=== PATIENT | male | born 1970 | race Caucasian/White ===

== ENCOUNTER 2021-04-12 09:34 | Outpatient (CLI) | payer BC, SELFPAY ==
--- NOTE | ~2021-04-12 | XR_ITS ---
XR elbow RT 2V DATE: 04/12/2021 10:31 INDICATION: Right elbow pain TECHNIQUE: AP and lateral views COMPARISON: None FINDINGS: No fracture or dislocation or joint effusion. No periosteal reaction or bone destruction. IMPRESSION: No significant abnormality Reviewed, dictated and finalized at location A. RITY RESEARCHER IMPRESSION: No significant abnormality
== END 2021-04-12 09:35 ==
PROVIDERS: PCP Physician Assistant; Visit Provider Physician Assistant
DX: M77.01 Medial epicondylitis, right elbow (principal); M25.521 Pain in right elbow
CPT/HCPCS: 73070

== ENCOUNTER → 2021-10-25 09:46 | Outpatient (CLI) | payer BC, SELFPAY ==
--- NOTE | ~2021-10-25 | MR_ITS ---
EXAMINATION: MR elbow RT wo con DATE: 10/25/2021 10:33 INDICATION: Right elbow pain TECHNIQUE: Magnetic resonance imaging (MRI) of the right elbow was performed without intravenous cont rast. Sequences included coronal, axial, and sagittal PD-weighted FS FSE and coronal, axial, and sagi ttal PD-weighted FSE. COMPARISON: None FINDINGS: Osseous/other: Normal alignment. Normal marrow signal with no marrow edema, fracture, osteochondral lesion or abnor mal marrow replacing process. Tendons: Triceps, biceps brachii and brachialis tendons are normal. There is mild tendinopathy without tear a t the common flexor and extensor tendon wads. Mild osteoarthritis at the elbow with mild nonuniform j oint space narrowing with regions of partial-thickness cartilage loss with smooth chondral surfaces w ithout degenerative subchondral changes. Ligaments: The medial and lateral collateral ligament complexes are normal. Cubital tunnel: Cubital tunnel is unremarkable with normal signal and caliber of the ulnar nerve. Fluid: Physiologic amount of fluid the elbow joint. IMPRESSION: 1. Mild tendinopathy without discrete tears at the medial and lateral epicondylar origins of the comm on flexor and extensor tendon wads respectively. 2. Mild osteoarthritis at the right elbow. Reviewed, dictated and finalized at location A. IMPRESSION: 1. Mild tendinopathy without discrete tears at the medial and lateral epicondyl ar origins of the common flexor and extensor tendon wads respectively. 2. Mild osteoarthritis at the right elbow.
== END ==
PROVIDERS: PCP Internal Medicine; Visit Provider Physician Assistant
DX: M17.11 Unilateral primary osteoarthritis, right knee (principal); M77.01 Medial epicondylitis, right elbow
CPT/HCPCS: 73221

== ENCOUNTER 2024-11-23 12:37 | Outpatient (CLI) | payer BC, SELFPAY ==
--- OUTSIDE RECORDS SUMMARY | 2024-02-10 04:27 | XMS_ITS | Continuity of Care Document ---
Author Organization [facility] Address [address] [place] [phone] Phone Care Team Providers Care [employer] Jointer Name Role Phone Osei Limon MD, [facility], Tod Unavailable Unav ailable Allergies, Adverse Reactions, Alerts Substance Reaction Status Criticality No Known Allergies Active No Inform ation Medications Medication Instructions Dosage Effective Dates (start - stop) Status Comments No Drug Therapy Prescribed Advance Directives Directive Yes / No Effective Date File Name No Information Encounters Encounter Description Practice Location Reason(s) For Visit Diagnoses Date Provider Providers Copied on Encounter [facility] , [address] [place] [address], [id number], tel:[phone] [facility] Shortness of breath Osei Baron. [address] [place] [address], [id number], . tel:[phone] Referring Provider: Chucho Yip, [address] [place], [address]. tel:[phone] Family History Family Member Type Diagnosis Age At Onset No Information Payers Payer name Insurance type Covered libertarian ID Authoriza tion(s) No Information Social History Type Description Quantity Date Captured Comments Alcohol Use Details Unknown Caffeine Use Details Unknown Tobacco Use Status No Information Smoking Status No Information Sex Male Chief Complaint And Reason For Visit No Information Reason For Referral Reason For Referral No Information Plan Of Treatment Date Type Action Status Appointment Sheldon Mejia BOOKED Appointment Sheldon Mejia BOOKED History Of Present Illness Encounter Date Complaint History Of Prese nt Illness No Information Functional Status Date Functional Assessmen t No Information Medications Administered Medication Instructions Dosage Effective Dates (start - stop) Status Comments No Drug Therapy Prescribed Instructions Date Instruction Additional Infor mation No Information Assessments Type Assessment Date assessment Shortness of breath Patient Care Teams Name Effective Dates (start - stop) Status Members No Information
--- OUTSIDE RECORDS SUMMARY | 2024-11-23 14:20 | XMS_ITS | Clinical Summary ---
Author Organization [facility] Address [address] [place] [address] Care Team Providers Care Insurance Executive Name Role Phone Unavailable Primary Care Provider Unavailabl e Source Comments [facility],non-owned Affiliates and Associated Physician Practices is amultiple site organization consisting of ambulatory clinics and hospital sitesin [place], [place], [place] and [place]. This disclosure is being madepursuant to the Care Everywhere program and may not contain all information available regarding this patient. Last updated 17.[facility] Lenda Allergies No known active allergies Medications * Be aware that medications may not be up to date on this document. Alwaysverify current medications with the patient. 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 Gender Identity Not on file Sexual Orientation Not on file Last Filed Vital Signs Vital Sign Reading Time Taken Comments Blood Pressure 124/76 02/27/2017 10:52 AM WELCOME HOSTESS Pulse 109 02/27/2017 10:52 AM WELCOME HOSTESS Temperature 37.3 C (99.1 F) 02/27/2017 10:52 AM WELCOME HOSTESS Respiratory Rate 18 02/27/2017 10:52 AM WELCOME HOSTESS Oxygen Saturation 95% 02/27/2017 10:52 AM WELCOME HOSTESS Inhaled Oxygen Concentration - - Weight 122.5 kg (270 lb) 02/27/2017 10:52 AM WELCOME HOSTESS Height 171.5 cm (5' 7.5) 02/27/2017 10:52 AM CS T Body Mass Index 41.66 02/27/2017 10:52 AM WELCOME HOSTESS Plan of Treatment Health Maintenance Due Date Last Done Comments COLOGUARD (AGES 45-75) - COL ON CA SCREENING 1970 COLON MONITORING 1970 COLONOSCOPY - COLON CA SCREENING 1970 CT COLONOGRAPHY - COLON CA SCREENING 1970 Colorectal Cancer Screening 1970 FIT - COLON CA SCREENING 1970 FLEX SIG - COLON CA SCREENING 1970 LIPID TESTING 1970 HIV SCREENING 1985 HEPATITIS C SCREENING 03/05/1988 DTAP/TDAP/TD VACCINES (1 - Tdap) 1989 HEPATITIS B VACCINE (1 of 3 - 19+ 3-dose series) 1989 SCREENING FOR DIABETES 02/27/2017 PNEUMOCOCCAL VACCINE 50+ (1 of 1 - PCV) 2020 ZOSTER VACCINE (1 of 2) 2020 DEPRESSION SCREENING 02/10/2024 COVID-19 VACCINE (1 - 2023-2 5 season) 2024 INFLUENZA VACCINE (#1) 2024 HIB VACCINE Aged Out No longer eligi ble based on patient's age to complete this topic HPV VACCINE Aged Out No longer eligi ble based on patient's age to complete this topic MENINGOCOCCAL (Group B) VACC INE SHARED DECISION-MAKING Aged Out No longer eligibl e based on patient's age to complete this topic MENINGOCOCCAL GROUPS A/C/Y/W VACCINE Aged Out No longer eligible b ased on patient's age to complete this topic Insurance ANTH
--- OUTSIDE RECORDS SUMMARY | 2024-11-23 14:20 | XMS_ITS | Data Portability ---
Author Organization [place] [facility], Main Office Address [address] [place] [address] Assessment Encounter Date Assessment Date Assessment LastModified by Organization Details LastModified Time 05/12/2022 05/12/2022 Blood work continue current therapy colonoscopy he did not get yet see me in 6 months [email or web address] Not available 05/12/2022 22:59:11 11/17/2022 11/17/2022 Will continue current therapy refill medications did not get his colonoscopy scan done will reorder it and encouraged him to do so for colon cancer screening follow-up 6 months [email or web address] Not available 11/17/2022 21:43:05 Plan of Treatment Reminders Order Date Submit Date Provider Last Modified By Organization Details Last Modified Time Details Appointments None recorded. Lab PSA, serum or plasma 2022 023 [facility] (Lab), [address] [place], [address], 4 15:30:15 CMP, serum or plasma 2022 023 [facility] (Lab), [address] [place], [address], 4 15:30:15 lipid panel, serum 2022 023 [facility] (Lab), [address] [place], [address], 4 15:30:15 lipid panel, serum 2022 023 [facility], [address] [place], [address], 4 15:30:14 CMP, serum or plasma 2022 023 [facility], [address] [facility], [place], [address], 4 15:30:14 Referral None recorded. Procedures colonoscopy screening (PROC) 2022 023 sunny Matthews MD, [address] [facility], [facility] [address], [place], [address], 4 14:44:31 colonoscopy screening (PROC) 2022 023 sunny Matthews MD, [address] [facility], [facility] [address], [place], [address], 4 14:44:30 Surgeries None recorded. Imaging None recorded. Medication Orders atorvastati n 10 mg tablet 2022 023 [email or web address] [facility], [address], [facility] [address], [place], [place], [id number], 3 15:30:38 losartan 50 mg tablet 2022 023 [email or web address] [facility], [address], [facility] [address], [place], [place], [id number], 3 15:30:38 Patient TargetsNo targets recorded. Patient InstructionsNo instructions recorded. Reason for Referral None Reported. Results Created Date Observation Date Name Description Value Unit Range Abnormal Flag Note LastModifiedBy Organization Detail LastModifiedTime 10/26/19 22 10/25/2021 MRI, elbow , w/o contr ast No observ ation record ed. [id number] [facility] [address] Ekaterina Nguyen [facility] [address], [place], [address], 04/10/2022 01:25:56 10/26/19 22 10/25/2021 MRI, elbow , w/o contr ast No observ ation record ed. [id number] [facility] [address]arr[address], [place], [address], 04/10/2022 01:25:56 Result Notes None recorded. Problems Name Problem SNOMED Code Status Onset Date Resolution Date Notes Provider Name and Address Organization Details Recorded Time Fatigue 75764128 Active 2021 Not Available [facility] 3 01:24:18 Weight gain 1248323 Active 2021 Not Available [facility] 3 01:24:18 Hyperlipidemia 05644665 Active 2021 Not Available [facility] 3 01:24:18 Essential hypertension 03431454 Active 2021 Not Available [facility] 3 01:24:18 Problem Notes None recorded. Procedures Surgical History Date Name Laterality Status Provider Name and Address Organization Details Recorded Time thumb surgery completed Not Available [facility] 04/10/2022 01:23:17 operation on hip joint completed Not Available [facility] 04/10/2022 01:23:17 Imaging Results None recorded. Procedure Notes None recorded. Medical Equipment None Reported. Allergies No known drug allergies Medications Name Sig Start Date Stop Date Status Note LastModified by Organization Details LastModified Time losartan 50 mg tablet Take 1 tablet by mouth once daily active Not Available Not Available No t Available atorvastat in 10 mg tablet Take 1 tablet by mouth once daily active Not Available Not Available No t Available penicillin V potassium 500 mg tablet TAKE 1 TABLET BY MOUTH TWICE A DAY FOR 10 DAYS 01/13 completed Not Available Not Available Not Available losartan 25 mg tablet TAKE 1 TABLET BY MOUTH ONCE DAILY 01/13 completed changed to 50mg by Dr Yip Not Available Not Available Not Available loratadine 2021 active Not Available Not Available Not Avai lable finasterid e 2021 active Not Available Not Available Not Avai lable Vitals Date Recorded Body height Body weight Body temperature Heart rate Oxygen saturation Oxygen saturation in Arterial blood by Pulse oximetry Systolic And Diastolic Provider Name and Address Organization Details Last Updated DateTime 3 172.72 cm 04646.9 5 g 97.8 [degF] 78 /min 96 % 96 % 130/86 mm[Hg] Mariaelena Patel RN [facility] [employer] [facility] 3 15:10:18 Date Recorded Body mass index (BMI) Body height Heart rate Body temperature Body weight Systolic And Diastolic Provider Name and Address Organization Details Last Updated DateTime 2 32.2 kg/m2 172.72 cm 71 /min 98.5 [degF] 84589.5 8 g 130/78 mm[Hg] Not Available [facility] 3 01:23:22 Date Recorded Body height Body mass index (BMI) Body weight Body temperature Heart rate Systolic And Diastolic Provider Name and Address Organization Details Last Updated DateTime 3 172.72 cm 31.3 kg/m2 94259.0 3 g 97.8 [degF] 69 /min 132/80 mm[Hg] Shanda hurtado RN [facility] [employer] [facility] 3 14:43:14 Date Recorded Body mass index (BMI) Body height Heart rate Body temperature Body weight Systolic And Diastolic Provider Name and Address Organization Details Last Updated DateTime 2 31.6 kg/m2 172.72 cm 87 /min 98 [degF] 10775.2 1 g 144/90 mm[Hg] Not Available [facility] 3 01:23:22 Date Recorded Body mass index (BMI) Body height Heart rate Body temperature Body weight Systolic And Diastolic Provider Name and Address Organization Details Last Updated DateTime 2 32.8 kg/m2 172.72 cm 88 /min 98.5 [degF] 49227.9 5 g 154/84 mm[Hg] Not Available [facility] 3 01:23:23 Social History Question Answer Notes LastModified by Organizat ion Details LastModified Time Tobacco Smoking Status Former Smoker Not Available [facility] 04/10/2022 01:23:02 Do You Have An Advance Directive? No [id number] [id number] Information not available 04/10/2022 Do You Wear A Helmet When Biking? No MIGRATION.19016 57476 Information not available 04/10/2022 What Is Your Level Of Caffeine Consumption? Heavy MIGRATION.68979 97215 Information not available 04/10/2022 In The 14 Days Before Symptom Onset, Have You Had Close Contact With A Laboratory-confi rmed COVID-19 While That Case Was Ill? No MIGRATION.02981 75981 Information not available 04/10/2022 In The 14 Days Before Symptom Onset, Have You Had Close Contact With A Person Who Is Under Investigation For COVID-19 While That Person Was Ill? No MIGRATION.11519 23417 Information not available 04/10/2022 What Type Of Diet Are You Following? CARBOHYDRATE Low Carb Diet MIGRATION.88946 34160 Information not available 04/10/2022 What Is The Highest Grade Or Level Of School You Have Completed Or The Highest Degree You Have Received? CD16045-2 MIGRATION.65921 47534 Information not available 04/10/2022 How Many Days Of Moderate To Strenuous Exercise, Like A Brisk Walk, Did You Do In The Last 7 Days? 2 MIGRATION.66375 20672 Information not available 04/10/2022 Have There Been Any Changes To Your Family Or Social Situation? Yes MIGRATION.90786 16217 Information not available 04/10/2022 What Is The Fluoride Status Of Your Home? Fluoridated MIGRATION.22626 90950 Information not available 04/10/2022 When Did You Quit Smoking? 1-5yearssincelastc igarette MIGRATION.85050 13159 Information not available 04/10/2022 Are There Any Guns Present In Your Home? Yes MIGRATION.91505 78144 Information not available 04/10/2022 Do You Use Insect Repellent Routinely? No MIGRATION.19891 57667 Information not available 04/10/2022 Where Do You Live? [facility] MIGRATION.51757 46302 Information not available 04/10/2022 Do You Have A Medical Power Of In Home Nanny? No MIGRATION.52799 60941 Information not available 04/10/2022 What Was The Date Of Your Most Recent Tobacco Screening? 11/17/2022 Information not available 11/17/2022 Have You Ever Been Counseled For Unhealthy Alcohol Use? No MIGRATION.29001 57034 Information not available 04/10/2022 Do You Have Any Pets? Yes MIGRATION.49420 41960 Information not available 04/10/2022 What Is Your Relationship Status? MIGRATION.99461 53378 Information not available 04/10/2022 Do You Use Your Seat Belt Or Car Seat Routinely? Yes MIGRATION.57861 32776 Information not available 04/10/2022 Do You Have Smoke And Carbon Monoxide Detectors In Your Home? Yes MIGRATION.84253 82557 Information not available 04/10/2022 At What Age Did You Start Smoking Tobacco? 22 MIGRATION.32366 76879 Information not available 04/10/2022 Are You Passively Exposed To Smoke? No MIGRATION.84004 11373 Information not available 04/10/2022 Are There Any Smokers In Your House? No MIGRATION.11070 10989 Information not available 04/10/2022 How Much Tobacco Do You Smoke? No MIGRATION.02861 20561 Information not available 04/10/2022 What Types Of Sporting Activities Do You Participate In? Jogging, Walking, Biking, Swimming MIGRATION.03790 54360 Information not available 04/10/2022 Do You Use Sunscreen Routinely? Yes MIGRATION.22753 07745 Information not available 04/10/2022 Has Tobacco Cessation Counseling Been Provided? No MIGRATION.49778 39421 Information not available 04/10/2022 Have You Recently Traveled Abroad? No MIGRATION.29537 60069 Information not available 04/10/2022 Do You Have Any Dietary Restrictions? No MIGRATION.74509 20563 Information not available 04/10/2022 Sex: Unknown Functional Status Question Answer Note LastModified by Organizat ion Details LastModified Time Do you use any illicit or recreational drugs? No MIGRATION.236049 5119 Information not available 04/10/2022 Do you or have you ever used any other forms of tobacco or nicotine? No MIGRATION.282762 1762 Information not available 04/10/2022 What is your level of alcohol consumption? Occasional MIGRATION.307942 8259 Information not available 04/10/2022 Are you currently employed? 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 Heavy MIGRATION.964880 1015 Information not available 04/10/2022 Mental Status Question Answer Note LastModified by Organizat ion Details LastModified Time Do you feel stressed (tense, restless, nervous, or anxious, or unable to sleep at night)? [id number] MIGRATION.[id number] 6 Information not available 04/10/2022 Family History Relationship Description Onset Age of this Age Resolved Age Notes LastModified by Organization Details LastModified Time Father Hypertensive disorder MIGRATION.614 [id number] Not available 04/10/2022 01:23:17 Father Rheumatoid arthritis MIGRATION.469 [id number] Not available 04/10/2022 01:23:18 Father Asthma MIGRATION.909 [id number] Not available 04/10/2022 01:23:18 Maternal Grandmother Parkinson's disease MIGRATION.086 [id number] Not available 04/10/2022 01:23:18 Maternal Grandmother Dementia MIGRATION.658 [id number] Not available 04/10/2022 01:23:18 Maternal Grandmother Diabetes mellitus MIGRATION.718 1360430 Not available 04/10/2022 01:23:18 Maternal Grandmother Family history of malignant neoplasm MIGRATION.113 [id number] Not available 04/10/2022 01:23:18 Maternal Grandmother Gastric ulcer MIGRATION.900 [id number] Not available 04/10/2022 01:23:18 Mother Family history of malignant neoplasm MIGRATION.848 [id number] Not available 04/10/2022 01:23:18 Medical History Condition Response HAVE YOU BEEN HOSPITALIZED OR SEEN IN [facility] ER IN THE PAST YEAR ? N ASTHMA N Immunizations Vaccine Type Date Status Note Provider [facility] e and Address Organization Details Recorded Time COVID-19, mRNA, LNP-S, PF, 30 mcg/0.3 mL dose 06/28/2020 completed Not Available [facility] 3 01:25:43 COVID-19, mRNA, LNP-S, PF, 30 mcg/0.3 mL dose 05/10/2020 completed Not Available [facility] 3 01:25:43 Past Encounters Encounter ID Performer Location Encounter Start Date Encounter Closed Date Diagnosis/Indication Diagnosis SNOMED-CT Code Diagnosis ICD10 Code Diagnosis IMO Codes Diagnosis Note [id number] Chucho Yip MD [facility] [place] [address] [facility] [address] [place] [address] 10/11/2021 00:00:00 10/14/2021 13:43:03 [id number] Chucho Yip MD [facility] [address] [facility] [address] [place] [address] 12/02/2021 00:00:00 12/03/2021 17:45:06 [id number] Chucho Yip MD [facility] Internal Med [facility] [address] [address] 01/13/2022 00:00:00 01/13/2022 18:43:50 [id number] Chucho Yip MD [facility] Internal Med [facility] [address] [place] [address] 1 05/12/2022 14:40:28 05/12/2022 16:23:59 Essential hypertension 88143389 I10 Screening for malignant neoplasm of colon 716160835 Z12.11 [id number] Chucho Yip MD [facility] Internal Med [facility] [address] [place] [address] 1 11/17/2022 14:22:27 11/17/2022 15:25:24 Renewal of prescription 728373625 Z76.0 Essential hypertension 24920536 I10 Screening for malignant neoplasm of prostate 329039313 Z12.5 Screening for malignant neoplasm of colon 367781222 Z12.11 Hyperlipidemia 88403433 E78.5 Health Concerns Section Related Observation LastModified by Organization Detai ls LastModified Time None Recorded Concern Status LastModified by Organization Details LastModified Time None Recorded Advance Directives Directive N: Payers Insurance Date Sequence Insurance Name Policy Number Policy Owens Covered Member ID Owens Member ID Guarantor Name 05/15/2023 1 [facility] [id number] Sheldon Mejia [id number] Sheldon Mejia Notes Date Note Type Note Provider Name and Address Organization Details Recorded Time 05/12/2022 text/html Hypertension no headache no dizziness. Hyperlipidemia no problems taking the atorvastatin Chucho Yip MD [address] [facility], [place], [address], [employer] [facility] [employer] 05/12/2022 22:59:30 11/17/2022 text/html Hypertension no headache no dizziness. Hyperlipidemia no problems taking the atorvastatin Chucho Yip MD [address] [facility], [address], [place], [address], [place] [facility] 11/17/2022 21:43:35
--- NOTE | 2024-11-23 14:44 | WPDPFTINT ---
PFT Procedure Performed PFT Procedure Performed Plethysmography (Lung Vol) Diffusing Cap (DLCO) Flow Vol Loop Spirometry w/o Bronchodil PFT Interpretation This is a pulmonary function test with spirometry, plethysmography and diffusing capacity. The test was performed and results interpreted in accordance with the 2019 and 2005 ATS/ERS Task Force guidelines respectively using the Global Lung Function Initiative-2012 reference equations. Patient demonstrated good effort and cooperation. Reproducibility criteria were met. The quality of the spirometry maneuver was Grade A. Findings: Spirometry: The contour the inspiratory and expiratory flow tracing are normal. The FVC is 4.54 L, 100% predicted. The FEV1 is 3.64 L, 102% predicted. The FEV1: FVC ratio is 80%. plethysmography: The total lung capacity is 6.94 L, 105% predicted. The functional residual capacity is 3.33 L, 99% predicted. The residual volume is 2.40 L, 119% predicted. Diffusing capacity: The diffusing capacity unadjusted for hemoglobin and carboxyhemoglobin is 25.6, 89% predicted. Diffusing capacity adjusted for alveolar volume is 4.41, 97% predicted. Impression: The spirometry is normal without evidence of an obstructive abnormality. The lung volumes are normal. The diffusing capacity is normal. There are no prior studies for comparison
== END 2024-11-23 12:38 | disposition home or self-care (01) ==
PROVIDERS: PCP Internal Medicine; Visit Provider Internal Medicine
DX: R06.02 Shortness of breath (principal)
CPT/HCPCS: 94375; 94726; 94729